=== PATIENT | female | born 1945 | race Caucasian/White ===

== ENCOUNTER 2020-01-07 08:21 | Outpatient (CLI) | payer MEDICARE ==
[2020-01-07] MEDS ORDERED: REGADENOSON 0.4 MG/5 ML SYRINGE ONE (09:34)
== END 2020-01-07 23:59 | disposition home or self-care (01) ==
LOC: CFH 08:21
PROVIDERS: ATTEND Internal Medicine Cardiovascular Disease
DX: I35.1 Nonrheumatic aortic (valve) insufficiency (principal); R06.02 Shortness of breath; I10 Essential (primary) hypertension
CPT/HCPCS: 78452; 93017; A9502; J2785

== ENCOUNTER 2020-05-20 01:39 | Emergency (ER) | payer MEDICARE ==
[~2020-05-20] VITALS: Ht 170.2 cm; Wt 134.5 kg
[2020-05-20 02:26] LABS: BASOPHILS % (AUTO) 0 % (0-1); EOSINOPHILS % (AUTO) 2 % (1-7); LYMPHOCYTES % (AUTO) 17 % (22-44); MEAN CORPUSCULAR HEMOGLOBIN 32.3 pg (27.0-34.8); MEAN PLATELET VOLUME 7.2 fL (7.4-10.4); MONOCYTES % (AUTO) 9 % (2-9); NEUTROPHILS % (AUTO) 72 % (42-75); PLATELET COUNT 156 x10^3/uL (130-400); RED CELL DISTRIBUTION WIDTH 12.9 % (9.6-15.2)
[2020-05-20 02:27] LABS: MD NO
[2020-05-20 02:38] LABS: ALANINE AMINOTRANSFERASE 30 U/L (12-78); ALBUMIN 3.4 g/dL (3.4-5.0); ANION GAP 4 mmol/L (5-15); CALCIUM 9.3 mg/dL (8.5-10.1); CHLORIDE 108 mmol/L (98-107); CREATININE 0.89 mg/dL (0.55-1.02)
[2020-05-20 02:40] LABS: ALKALINE PHOSPHATASE 62 U/L (45-117); BILIRUBIN,TOTAL 0.3 mg/dL (0.2-1.0); TOTAL PROTEIN 6.9 g/dL (6.4-8.2)
[2020-05-20 02:41] LABS: SALICYLATE LEVEL < 1.7 mg/dL (2.8-20.0)
--- NOTE | 2020-05-20 04:01 | NUR ---
DEIDRA RN: DR. GILES AT BEDSIDE UPDATING PT ON PLAN OF CARE. PT TO HAVE ANOTHER TYLENOL LEVEL DRAWN AT 0430. PT AWARE. BRISA HA RN UPDATED
[2020-05-20] MEDS ORDERED: NALOXONE 0.4 MG/ML, 1ML ONE (05:29)
[2020-05-20] MEDS ORDERED: NALOXONE 0.4 MG/ML, 1ML IM ONE (05:30)
--- NOTE | 2020-05-20 05:30 | NUR ---
Pt oxygen saturdation dropped to 88%. informed. Narcan administered. WCTM.
[2020-05-20 06:43] VITALS: BP 135/63
--- NOTE | 2020-05-20 06:49 | NUR ---
Report given to Mikayla. Pt placed on RA for recheck at 0730. Mikayla aware.
--- NOTE | 2020-05-20 06:50 | NUR ---
RECEIVED REPORT FROM LELAND ALICEA AND ASSUMED CARE.
--- NOTE | 2020-05-20 07:26 | NUR ---
CONTINUE TO OBSERVE PT. BREATHING EVEN AND UNLABORED AT RATE OF 16. CONTINUES TO FEEL DROWSY. FAMILY AT BEDSIDE.
--- NOTE | 2020-05-20 07:55 | NUR ---
DR MCCALLUM AT BEDSIDE RE-EXAMINING PT
== END 2020-05-20 08:13 | disposition home or self-care (01) ==
LOC: ED 02:49
DX: T40.2X1A Poisoning by other opioids, accidental (unintentional), initial encounter (principal); T39.1X1A Poisoning by 4-Aminophenol derivatives, accidental (unintentional), initial encounter; Y92.89 Other specified places as the place of occurrence of the external cause
CPT/HCPCS: 36415; 80053; 80307; 85025; 96372; 99283; J2310

== ENCOUNTER → 2021-01-28 | Outpatient (CLI) | payer MEDICARE ==
[~2021-01-28] MED LIST: ALBU8.5H8 INH; AMLO-211 PO; DULO60CA7 PO; FURO20TA3 PO; LOSA50TA14 PO; OXYC1TAB18 PO; STOOL SOFTERNER PO; TRAZ-175 PO; UBID100C24 PO; VITA1TAB19 PO; fishoil PO; magnesium PO; vitamin E PO
[2021-01-28 16:00] LABS: MICROSCOPIC NOT IND
[2021-01-28 16:06] LABS: ALBUMIN 3.4 g/dL (3.4-5.0); ANION GAP 4 mmol/L (5-15); BASOPHILS % (AUTO) 0 % (0-1); CALCIUM 9.6 mg/dL (8.5-10.1); CHLORIDE 106 mmol/L (98-107); EOSINOPHILS % (AUTO) 2 % (1-7); LYMPHOCYTES % (AUTO) 24 % (22-44); MEAN CORPUSCULAR HGB CONC 33.1 g/dL (32.4-35.8); MEAN PLATELET VOLUME 7.2 fL (7.4-10.4); MONOCYTES % (AUTO) 10 % (2-9); NEUTROPHILS % (AUTO) 64 % (42-75); PLATELET COUNT 160 x10^3/uL (130-400); RED BLOOD COUNT 4.67 x10^6/uL (3.82-5.3); RED CELL DISTRIBUTION WIDTH 13.6 % (9.6-15.2)
[2021-01-28 16:08] LABS: INTERNATIONAL NORMALIZED RATIO 1.01 (0.93-1.1); PROTHROMBIN TIME 10.8 Seconds (9.6-11.5)
[2021-01-28 16:09] LABS: ALANINE AMINOTRANSFERASE 40 U/L (12-78); ALKALINE PHOSPHATASE 69 U/L (45-117); BILIRUBIN,TOTAL 0.4 mg/dL (0.2-1.0); CREATININE 0.63 mg/dL (0.55-1.02); TOTAL PROTEIN 7.1 g/dL (6.4-8.2)
== END | disposition home or self-care (01) ==
LOC: STAR 13:48
PROVIDERS: ATTEND Neurological Surgery
DX: Z01.812 Encounter for preprocedural laboratory examination (principal); Z20.822 Contact with and (suspected) exposure to COVID-19; M48.062 Spinal stenosis, lumbar region with neurogenic claudication; J43.9 Emphysema, unspecified; I51.7 Cardiomegaly
CPT/HCPCS: 36415; 71046; 80053; 81003; 85025; 85610; 85730; 93005; U0003; U0005

== ENCOUNTER 2021-02-03 06:51 | Observation (INO) | payer MEDICARE ==
[~2021-02-03] VITALS: Ht 167.6 cm; Wt 141.5 kg
[2021-02-03] MEDS ORDERED: GENTAMICIN 80 MG/2 ML ONE (06:59)
[2021-02-03 07:43] VITALS: BP 150/90
[2021-02-03] MEDS ORDERED: CHLORHEXIDINE 15 ML UDC PO ONE (08:00)
[2021-02-03] MEDS ORDERED: LACTATED RINGERS 1,000 ML IV SCH (08:00)
[2021-02-03] MEDS ORDERED: FENTANYL PF 250 MCG/5ML ONE (08:25)
[2021-02-03] MEDS ORDERED: BUPIVACAINE/PF 0.5% ONE ×2 (08:51→08:54)
[2021-02-03] MEDS ORDERED: methylPREDNISolone SOD SUCC 125 MG/2 ML ONE (08:52)
[2021-02-03] MEDS ORDERED: FENTANYL PF 100 MCG/2ML ONE ×2 (08:52→11:19)
[2021-02-03] MEDS ORDERED: METHOCARBAMOL 1,000 MG in DEXTROSE 5% 100 ML IV PRN (09:00)
[2021-02-03] MEDS ORDERED: LABETALOL 5MG/ML, 20ML IV PRN (09:00)
[2021-02-03] MEDS ORDERED: OXYcodone 5 MG/5 ML ORAL.SOL UDC PO PRN (09:00)
[2021-02-03] MEDS ORDERED: MEPERIDINE/PF 25MG/0.5ML IVPush PRN (09:00)
[2021-02-03] MEDS ORDERED: ACETAMINOPHEN 325 MG TABLET PO PRN (09:00)
[2021-02-03] MEDS ORDERED: PROMETHAZINE 25 MG/ML, 1ML IVPush PRN (09:00)
[2021-02-03] MEDS ORDERED: MIDAZOLAM 1 MG/ML, 2ML IV PRN (09:00)
[2021-02-03] MEDS ORDERED: ALBUTEROL SULFATE 2.5 MG/3 ML NPPB PRN ×2 (09:00→13:00)
[2021-02-03] MEDS ORDERED: GENTAMICIN 80 MG/2 ML IV ONE (09:53)
[2021-02-03] MEDS ORDERED: BUPIVACAINE/PF-EPI 0.5% 1:200K INFIL ONE (09:54)
[2021-02-03] MEDS ORDERED: methylPREDNISolone SOD SUCC 125 MG/2 ML IVPush ONE (09:55)
[2021-02-03] MEDS ORDERED: FENTANYL PF 100 MCG/2ML EPIDPUSH ONE (09:56)
[2021-02-03] MEDS ORDERED: PROPOFOL 10 MG/ML, 20ML ONE (10:12)
[2021-02-03] MEDS ORDERED: ROCURONIUM 10MG/ML,5ML ONE (10:12)
[2021-02-03] MEDS ORDERED: DEXAMETHASONE 4 MG/ML, 1ML ONE (10:12)
[2021-02-03] MEDS ORDERED: CEFAZOLIN 1,000 MG ONE ×2 (10:12)
[2021-02-03] MEDS ORDERED: LIDOCAINE-MPF 2% ,5ML ONE (10:12)
[2021-02-03] MEDS ORDERED: NEOSTIGMINE 1 MG/ML, 10ML ONE (10:12)
[2021-02-03] MEDS ORDERED: ONDANSETRON 2MG/ML, 2ML ONE (10:12)
[2021-02-03] MEDS ORDERED: GLYCOPYRROLATE 0.2MG/1ML, 5ML ONE (10:12)
[2021-02-03] MEDS ORDERED: OXYcodone 5 MG/5 ML ORAL.SOL UDC ONE (11:19)
[2021-02-03] MEDS ORDERED: HYDROmorphone 2 MG/ML, 1ML ONE (11:19)
[2021-02-03] MEDS: FENTANYL PF 100 MCG/2ML IV PRN ×2 (11:21→11:26)
[2021-02-03] MEDS: HYDROmorphone 1 MG/ML, 1ML INJ IVPush PRN ×3 (11:39→11:53)
[2021-02-03] MEDS ORDERED: OXYcodone IR 5MG TABLET PO PRN ×3 (13:00→14:00)
[2021-02-03] MEDS ORDERED: TRAZODONE 100MG TABLET PO PRN (13:00)
[2021-02-03] MEDS ORDERED: BISACODYL 10 MG SUPP PR PRN (13:00)
[2021-02-03] MEDS ORDERED: PROMETHAZINE 25 MG/ML, 1ML IM PRN (13:00)
[2021-02-03] MEDS ORDERED: ONDANSETRON 2MG/ML, 2ML IV PRN (13:00)
[2021-02-03] MEDS ORDERED: MAGNESIUM HYDROXIDE 8%, 30ML UDC PO PRN (13:00)
[2021-02-03] MEDS ORDERED: TIZANIDINE 2MG TABLET PO PRN (13:00)
[2021-02-03] MEDS ORDERED: DIPHENHYDRAMINE 25 MG CAPSULE PO PRN (13:00)
[2021-02-03] MEDS ORDERED: DIPHENHYDRAMINE 50 MG/ML, 1ML IVPush PRN (13:00)
[2021-02-03] MEDS ORDERED: morphine SULFATE 10 MG/ML, 1ML IV PRN (13:00)
[2021-02-03 13:14] VITALS: BP 126/63
[2021-02-03] MEDS: NS + 20MEQ KCL 1,000 ML IV SCH ×2 (14:11→23:00)
[2021-02-03] MEDS: CEFAZOLIN PMX 1GM/50ML 50 ML IVPB SCH (17:55)
[2021-02-03 19:05] VITALS: BP 129/71
[2021-02-03] MEDS: OXYcodone IR 5MG TABLET PO PRN (20:19)
[2021-02-04 00:30] VITALS: BP 124/72
[2021-02-04] MEDS: OXYcodone IR 5MG TABLET PO PRN ×4 (01:45→17:28)
[2021-02-04] MEDS: CEFAZOLIN PMX 1GM/50ML 50 ML IVPB SCH (01:46)
[2021-02-04 03:58] VITALS: BP 126/76
[2021-02-04 07:45] VITALS: BP 133/82
[2021-02-04] MEDS ORDERED: LOSARTAN 100 MG TAB PO SCH (09:00)
[2021-02-04] MEDS ORDERED: DULOXETINE 30 MG CAPSULE.DR PO SCH (09:00)
[2021-02-04] MEDS ORDERED: FUROSEMIDE 40 MG TABLET PO SCH (09:00)
[2021-02-04] MEDS: NS + 20MEQ KCL 1,000 ML IV SCH (09:00)
[2021-02-04] MEDS ORDERED: SENNA/DOCUSATE TABLET PO SCH (09:00)
[2021-02-04] MEDS ORDERED: AMLODIPINE 10 MG TAB PO SCH (09:00)
[2021-02-04 14:00] VITALS: BP 105/68
[2021-02-19] MEDS ORDERED: OXYC10TA6 PO (03:08)
== END 2021-02-04 18:14 | disposition home or self-care (01) ==
LOC: OUT 06:51 → 4NE 12:22 → OUT 20:46
PROVIDERS: ADMIT Neurological Surgery; ATTEND Neurological Surgery
DX: M48.062 Spinal stenosis, lumbar region with neurogenic claudication (principal); M47.9 Spondylosis, unspecified; I10 Essential (primary) hypertension; J45.909 Unspecified asthma, uncomplicated; M79.7 Fibromyalgia; G83.4 Cauda equina syndrome; G47.33 Obstructive sleep apnea (adult) (pediatric); R32 Unspecified urinary incontinence; F32.9 Major depressive disorder, single episode, unspecified; E66.01 Morbid (severe) obesity due to excess calories; Z79.899 Other long term (current) drug therapy
CPT/HCPCS: 63047; 63048; 72100; 96361; 96365; 96366; 97162; 97166; G0378; J0690; J1100; J1170; J1580; J2405; J2704; J2710; J2800; J2930; J3010; J3480; J3490; J7120; S0020

== ENCOUNTER 2021-02-17 14:06 | Outpatient (CLI) | payer MEDICARE ==
[2021-02-17] MEDS ORDERED: ONDANSETRON 2MG/ML, 2ML IVPush PRN (21:00)
[2021-02-17] MEDS ORDERED: HYDROmorphone 1 MG/ML, 1ML INJ IVPush PRN (21:00)
[2021-02-17] MEDS ORDERED: MEPERIDINE/PF 25MG/0.5ML IVPush PRN (21:00)
[2021-02-17] MEDS ORDERED: hydrALAzine 20 MG/ML, 1ML IV PRN (21:00)
[2021-02-17] MEDS ORDERED: ACETAMINOPHEN 325 MG TABLET PO PRN (21:00)
[2021-02-17] MEDS ORDERED: LABETALOL 5MG/ML, 20ML IV PRN (21:00)
[2021-02-17] MEDS ORDERED: LORazepam 2 MG/ML, 1ML IVPush PRN (21:00)
[2021-02-17] MEDS ORDERED: FENTANYL PF 100 MCG/2ML IV PRN (21:00)
[2021-02-17] MEDS ORDERED: METHOCARBAMOL 1,000 MG in DEXTROSE 5% 100 ML IV PRN (21:00)
[2021-02-17] MEDS ORDERED: PROMETHAZINE 25 MG/ML, 1ML IVPush PRN (21:00)
[2021-02-17] MEDS ORDERED: OXYcodone 5 MG/5 ML ORAL.SOL UDC PO PRN (21:00)
[2021-02-19] MEDS ORDERED: OXYC10TA6 PO (03:08)
== END 2021-02-17 23:59 | disposition home or self-care (01) ==
LOC: RAD 14:06
PROVIDERS: ATTEND Neurological Surgery
DX: Z01.818 Encounter for other preprocedural examination (principal); S23.1 Subluxation and dislocation of thoracic vertebra; T81.40XA Infection following a procedure, unspecified, initial encounter; M51.37 Other intervertebral disc degeneration, lumbosacral region; X58.XXXA Exposure to other specified factors, initial encounter; Y93.89 Activity, other specified; Y92.89 Other specified places as the place of occurrence of the external cause; Y99.8 Other external cause status
CPT/HCPCS: 72131